=== PATIENT | female | born 1995 | race Caucasian/White ===

== ENCOUNTER 2023-03-04 07:11 | Outpatient (CLI) | payer OTHER, SELFPAY ==
--- NOTE | 2023-03-04 07:15 | CRLHL7_ITS ---
For Patients: As a result of the Century Cures Act, medical imaging exams and procedure reports are released immediately into your electronic medical record. You may view this report before your referring provider. If you have questions, please contact your health care provider. INDICATION: First trimester scan, establish dates. COMPARISON: None. TECHNIQUE: Real-time elizondo-scale imaging of the pelvis was performed. FINDINGS: Sonographic imaging demonstrates a single living intrauterine gestation. The embryo demonstrates a regular cardiac rate measuring 174 beats per minute. The embryo`s crown-rump length measurement of 3.5 cm corresponds to a gestational age of 10 weeks 3 days with a sonographic due date of September 27, 2023. There is a normal-appearing yolk sac measuring 4 mm. There appears to be physiologic gut herniation or less likely an omphalocele. However ultrasound follow up is recommended within 4-6 weeks to assess for resolution of this potential physiologic finding. The placenta has not yet developed. The gestational sac has a normal appearance. Minimal subchorionic hemorrhage inferior to the gestational sac measuring 8 x 14 x 14 mm. And there is no evidence of a perigestational hemorrhage. The amount of fluid within the sac appears appropriate for gestational age. The cervix is closed. The myometrium appears normal. The ovaries are of normal size. The right ovary measures 4.6 x 2.4 x 2.0 cm. The left ovary measures 3.6 x 2.2 x 2.1 cm. There are no suspicious fluid collections noted in the cul-de-sac. IMPRESSION: Gestational age calculated at 10 weeks 3 days with a sonographic due date of September 27, 2023. Incidental note is made of presumed physiologic foregut herniation versus an omphalocele. A short interval follow-up ultrasound is recommended within 4-6 weeks to assess for resolution or persistence of this finding. Dictated by William Ellis MD @ 03/04/2023 9:47:39 AM (Electronically Signed)
== END 2023-03-04 07:12 | disposition home or self-care (01) ==
PROVIDERS: Visit Provider Physician Assistant
DX: Z34.91 Encounter for supervision of normal pregnancy, unspecified, first trimester (principal); Z3A.09 9 weeks gestation of pregnancy
CPT/HCPCS: 76817; 86703; 86803; 86850; 86900; 86901; 87086; 87340

== ENCOUNTER 2023-03-04 10:36 | Outpatient (CLI) | payer OTHER, SELFPAY | END 2023-03-04 10:37 | disposition home or self-care (01) | PROVIDERS: Visit Provider Physician Assistant | DX: Z34.91 Encounter for supervision of normal pregnancy, unspecified, first trimester (principal); Z3A.09 9 weeks gestation of pregnancy | CPT/HCPCS: 86592; 86703; 86762; 86787; 86803; 86850; 86900; 86901; 87086; 87340 ==

== ENCOUNTER 2023-04-01 08:06 | Outpatient (CLI) | payer OTHER, SELFPAY ==
--- NOTE | 2023-04-01 08:15 | CRLHL7_ITS ---
For Patients: As a result of the Cures Act, medical imaging exams and procedure reports are released immediately into your electronic medical record. You may view this report before your referring provider. If you have questions, please contact your health care provider. INDICATION: f/u ?gut herniation vs. omphalocele COMPARISON: 03/04/2023 TECHNIQUE: Real-time elizondo-scale imaging of the pelvis was performed. FINDINGS: Sonographic imaging demonstrates a single living intrauterine gestation. The embryo demonstrates a regular cardiac rate measuring 161 beats per minute. The embryo`s crown-rump length measurement of 8.8 cm corresponds to a gestational age of 14 weeks 5 days with a sonographic due date of 09/25/2023. The abdominal wall appears normal on the current exam. There are no gross abnormalities noted within the embryo at this early state of development. The gestational sac has a normal appearance. There is no evidence of a perigestational hemorrhage. The amount of fluid within the sac appears appropriate for gestational age. The cervix is closed. The myometrium appears normal. The ovaries are not visualized. There are no suspicious fluid collections noted in the cul-de-sac. IMPRESSION: The previously noted abdominal wall finding is no longer present. Dictated by Eliezer Carey MD @ 04/01/2023 10:27:05 AM (Electronically Signed)
== END 2023-04-01 08:07 | disposition home or self-care (01) ==
LOC: US 08:06
PROVIDERS: Visit Provider Physician Assistant
DX: O35.9XX0 Maternal care for (suspected) fetal abnormality and damage, unspecified, not applicable or unspecified (principal)
CPT/HCPCS: 76816

== ENCOUNTER 2023-05-13 12:28 | Outpatient (CLI) | payer OTHER, SELFPAY ==
--- NOTE | 2023-05-13 12:15 | CRLHL7_ITS ---
For Patients: As a result of the Century Cures Act, medical imaging exams and procedure reports are released immediately into your electronic medical record. You may view this report before your referring provider. If you have questions, please contact your health care provider. INDICATION: Evaluate anatomy. COMPARISON: 03/04/2023, 04/01/2023 TECHNIQUE: Real time elizondo scale imaging of the fetus was performed as well as color Doppler analysis of the umbilical vessels. FINDINGS: Sonographic imaging demonstrates a single living intrauterine gestation. Fetus demonstrates a regular cardiac rate of 156 beats per minute. Fetus has a vertex position. The placenta lies anteriorly. The edge of the placenta is 8.8 cm from the internal cervical os. Amniotic fluid volume appears normal. Single deepest vertical pocket: 5.4 cm. The cervix is closed and measures 4.2 cm in length. The composite ultrasound gestational age is calculated at 20 weeks 6 days with an estimated sonographic due date of 09/24/2023. The estimated weight is 411 grams which lies at the greater than 97th %. The following biometric measurements were obtained: Biparietal diameter: 4.8 cm/20 weeks 4 days 76th% Head circumference: 17.8 cm/20 weeks 2 days 63rd% Abdominal circumference: 16.7 cm/21 weeks 5 days 93rd% Femur length: 3.5 cm/21 weeks 0 days 82nd% The HC/AC ratio measures: 1.07 range (1.06-1.25) On anatomic survey, there is a normal appearance of the cerebral ventricles, cavum septi pellucidi, cisterna magna and cerebellum. The nose, lips, and facial profile appear normal. The cervical, thoracic and lumbar spine are well visualized and appear normal. There is a normal four-chamber heart view and the left and right ventricular outflow tracts appear normal. The diaphragm and stomach appear normal. The kidneys and bladder also appear normal. There is a normal three-vessel cord and cord insertion site. The four extremities appear normal. IMPRESSION: Sonographic gestational age 20 weeks 6 days and sonographic due date 09/24/2023. Sonographic age 1 week ahead of the clinical age. No intrinsic abnormalities noted on anatomic survey. Dictated by Eliezer Carey MD @ 05/13/2023 1:31:48 PM (Electronically Signed)
== END 2023-05-13 12:29 | disposition home or self-care (01) ==
LOC: US 12:29
PROVIDERS: Visit Provider Physician Assistant
DX: Z34.92 Encounter for supervision of normal pregnancy, unspecified, second trimester (principal); Z3A.20 20 weeks gestation of pregnancy
CPT/HCPCS: 76805

== ENCOUNTER 2023-07-15 08:31 | Outpatient (CLI) | payer OTHER, SELFPAY | END 2023-07-15 08:32 | disposition home or self-care (01) | LOC: NFLDREF 07-19 03:16 | PROVIDERS: Visit Provider Obstetrics & Gynecology | DX: Z34.91 Encounter for supervision of normal pregnancy, unspecified, first trimester (principal) | CPT/HCPCS: 86592 ==

== ENCOUNTER 2023-09-06 14:55 | Outpatient (CLI) | payer OTHER, SELFPAY | END 2023-09-06 14:56 | disposition home or self-care (01) | LOC: NFLDREF 09-09 11:48 | PROVIDERS: Visit Provider Obstetrics & Gynecology | DX: Z34.93 Encounter for supervision of normal pregnancy, unspecified, third trimester (principal); Z36.85 Encounter for antenatal screening for Streptococcus B; Z3A.36 36 weeks gestation of pregnancy | CPT/HCPCS: 87081; 87653 ==

== ENCOUNTER 2023-09-27 06:06 | Inpatient (IN) | payer OTHER, SELFPAY ==
[2023-09-27] VITALS (14 sets, daily range): BP systolic 110–149; BP diastolic 65–87; PULSE 71–108; RESP 16–18; TEMP 36.7–37.1; O2SAT 97
--- NOTE | 2023-09-27 07:23 | P.LDBA_ITS ---
Subjective History of Present Illness Time Seen by Provider: 06:00 Narrative: Patient is being admitted to Labor and Delivery for spontaneous active labor. She is a 28 year old at weeks gestation. Her full history and physical was dictated by Dr. Zepeda on 09/13/23. Please see this for details. Specific Issues/Plans Spouse: Ciro, daughter: Lexis. [place] gender 1. Physiologic gut herniation verses omphalocele on dating and viability ultrasound at 9 6/7 Follow-up ultrasound in 4 weeks: Resolved 2. Pap 3. History of thrombocytopenia. Hematology consult 09/2020 in first : Either low normal platelets or chronic ITP versus gestational thrombocytopenia. 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 Mentating appropriately Pelvic exam: 10/100/+3
[2023-09-27] MEDS: ACETAMINOPHEN 500 MG TABLET 1000 MG PO ×3 (07:26→20:33)
--- NOTE | 2023-09-27 07:31 | W.PM.VAGDEL1 ---
Procedure Delivery date: 09/27/23 Procedure Done: Global Intrapartal Events: None Delivery monitor: external FHT Route of delivery: Laceration description: Perineal - 1st Degree Delivery repair: Vicryl Estimated blood loss (mL): 50 Anesthesia type: Local (For laceration repair ) Disposition: floor Narrative: The patient is a 28 year-old G 2 P 1001 admitted on 09/27/23 at 39 and 3/7 weeks gestation for spontaneous onset of labor. Cervical exam on admission was 10 cm/100 % effaced/+3 station with membranes intact in vertex presentation. Contractions were every 2 minutes. heart rate demonstrated baseline 130 bpm with moderate variability, + accelerations, negative decelerations; a category I tracing. GBS negative. SROM occurred at 0620 on 09/27/23 with clear fluid. Labor Analgesia: None Pitocin: No Labor onset: 09/27/2023 at 0200 Complete: 09/27/2023 at 0600 Pushin09/27/2023 at 0600 heart tones during second stage were cat I At 0635 a viable male infant delivered in vertex OA presentation over perineum via spontaneous vaginal delivery. Infant was placed on maternal abdomen. Cord was clamped and cut after a 30-60 second delay. Nose and mouth were bulb suctioned. Infant weight: pending. 7 at 1 minute and 8 at 5 minutes. Shoulder dystocia: No. Nuchal cord: No. Placenta delivered spontaneously and complete at 0641 with a 3 vessel cord. Complications: None. Mother and infant were stable after delivery. Laceration(s): Long 1st degree perineal, repaired with 2-0 vicryl in a continuos locking manner. 15 cc of 1% lidocaine used for analgesia. Estimated blood loss: 50 mL. Sponge and needles counts are correct. Mother and were stable at the time of this note. Vaishali is planning on . Baby boy: [place] Infant Gender: Male presentation: vertex Placental Delivery Description: Spontaneous Cord Description: 3 Vessels
[2023-09-27] MEDS: OXYTOCIN 10 UNIT/ML INJ IM (07:49)
[2023-09-27] MEDS: LIDOCAINE 1 % PF 30 ML INJECTION (07:49)
[2023-09-27 09:45] LABS: Hematocrit 38.1 % (33.0-51.0); Hemoglobin* 12.6 gm/dL (12.0-16.0); Mean Corpuscular HGB Conc 33 gm/dL (32-36); Mean Corpuscular Hemoglobin 29 pg (26-34); Mean Corpuscular Volume 87 fL (80-100); Platelet Count* 159 K/uL (140-440); Red Blood Count 4.39 m/uL (4.00-5.20); White Blood Count* 16.65 K/uL (4.50-11.00)
[2023-09-27 09:47] LABS: Slide Review Reflex No
[2023-09-27 10:08] LABS: Alanine Aminotransferase* 18 U/L (4-35); Aspartate Amino Transferase* 36 U/L (12-35); Blood Urea Nitrogen* 14 mg/dL (5-24); Creatinine* 0.5 mg/dL (0.5-1.5); Est. Creatinine Clearance* 155.42; Estimated Glomerular Filt Rate 130 ml/min
[2023-09-27] MEDS: IBUPROFEN 600 MG TABLET PO ×2 (12:06→19:09)
[2023-09-28 01:05] VITALS: BP 112/75; PULSE 84; RESP 12; TEMP 36.4; O2SAT 96
[2023-09-28] MEDS: IBUPROFEN 600 MG TABLET PO (01:05)
[2023-09-28] MEDS: ACETAMINOPHEN 500 MG TABLET 1000 MG PO (03:28)
[2023-09-28 03:30] VITALS: BP 102/64; PULSE 84; RESP 12; TEMP 36.7; O2SAT 96
[2023-09-28 07:03] LABS: Hematocrit 32.3 % (33.0-51.0); Hemoglobin* 10.6 gm/dL (12.0-16.0); Mean Corpuscular HGB Conc 33 gm/dL (32-36); Mean Corpuscular Hemoglobin 29 pg (26-34); Mean Corpuscular Volume 87 fL (80-100); Platelet Count* 132 K/uL (140-440)
[2023-09-28 07:07] LABS: Slide Review Reflex No
[2023-09-28 07:18] LABS: Alanine Aminotransferase* 17 U/L (4-35); Aspartate Amino Transferase* 39 U/L (12-35); Blood Urea Nitrogen* 12 mg/dL (5-24); Creatinine* 0.5 mg/dL (0.5-1.5); Est. Creatinine Clearance* 155.42; Estimated Glomerular Filt Rate 130 ml/min
--- NOTE | 2023-09-28 07:41 | P.DS_ITS ---
DS: Providers Provider Date Seen: 09/28/23 Date of admission: 09/27/23 06:06 Primary care physician: Not a Local Provider Admitting Clinician: Maliha Izquierdo CNM Attending Physician on discharge: Veronika Bethea CNM Date of Discharge: 09/28/23 DS: Diagnosis Discharge Diagnosis (1) Lactating mother: Status: Acute (2) care and examination immediately after delivery: Status: Acute Exam Narrative: Exam Narrative: GENERAL APPEARANCE:? normal affect, alert, no distress MOOD:? appropriate CHEST:? clear to auscultation HEART:? regular rate and rhythm ABDOMEN:? soft, non-tender the uterine fundus is At Umbilicus, Midline and is appropriate for the stage of recovery. PERINEUM:? mild edema of the perineum, there is a Perineal Laceration,? 1st degree that is healing well. EXTREMITIES:? normal and trace edema Const: Vital Signs, click to edit/add: Vital Signs - 24 hr 09/27/23 07:43 09/27/23 07:43 09/27/23 07:58 Temperature 98.8 F Pulse Rate 82 82 Pulse Rate [Left P ulse Oximeter] Respiratory Rate Blood Pressure 121/74 121/78 Blood Pressure [Le ft Arm] Pulse Oximetry Oxygen Delivery Me thod 09/27/23 08:13 09/27/23 08:28 09/27/23 08:43 Temperature Pulse Rate 71 75 79 Pulse Rate [Left P ulse Oximeter] Respiratory Rate Blood Pressure 135/80 128/82 126/81 Blood Pressure [Le ft Arm] Pulse Oximetry Oxygen Delivery Me thod 09/27/23 08:43 09/27/23 12:01 09/27/23 16:55 Temperature 98.8 F 98.2 F Pulse Rate Pulse Rate [Left P ulse Oximeter] 75 80 Respiratory Rate 18 18 Blood Pressure Blood Pressure [Le ft Arm] 110/70 118/80 Pulse Oximetry 97 97 Oxygen Delivery Me thod Room Air Room Air 09/27/23 20:20 09/28/23 01:05 09/28/23 03:30 Temperature 98.0 F 97.6 F 98.1 F Pulse Rate Pulse Rate [Left P ulse Oximeter] 80 84 84 Respiratory Rate 16 12 12 Blood Pressure Blood Pressure [Le ft Arm] 111/74 112/75 102/64 Pulse Oximetry 96 96 Oxygen Delivery Me thod Room Air Room Air Documenting provider has reviewed patient's vital signs: yes OB - DS: Summary Hospital Course Hospital Course: Vaishali is a 28 y.o. who was admitted to L & D for spontaneous labor. ?She had an uncomplicated NVD.?The patient feels well. ?The pain is well controlled with current medications. ?She has no new complaints. ?She is breast feeding and reports things are going well.? the patient has done well.? Vitals have been stable.? She has remained afebrile.? Has a good appetite, is tolerating a general diet. ?She is voiding without difficulty.? She is passing gas and has not had a bowel movement.? She is ambulating and denies any dizziness.? Has Small amount of rubra lochia. ?She is planning an IUD for prevention. Her preeclampsia lab work is essentially unchanged from her 07/27/24 results, blood pressures are WNL since delivery. Peripartum Data Infant delivery method: Vaginal Laceration description: Perineal - 1st Degree complications: none [place] Infant Gender: Male Infant Discharge Plan: Home Status at Discharge Functional status at discharge: independent ambulation Overall status at discharge: patient is progressing back to baseline Time Spent with Patient Time attestation: Total time spent providing and/or coordinating discharge services: Time spent: Less than 30 minutes Discharge Plan Discharge Disposition: Home, Self-Care Date of Admission: 09/27/23 06:06 Attending Provider on Discharge: Veronika Bethea Primary Care Provider: Provider,Not a Local Condition: Stable Anticipated Discharge Date/Time: 09/28/23 12:00 Discharge Medications: New acetaminophen 500 mg Tablet 1,000 mg PO Q6H PRN (Reason: pain/fever) Qty: 0 0RF docusate sodium 100 mg Capsule 100 mg PO DAILY Qty: 90 4RF ibuprofen 600 mg Tablet 600 mg PO Q6H PRNQty: 60 0RF Continued DHA 200 mg capsule PO polyethylene glycol 3350 [Miralax] 17 gram powder in packet 17 g PO QDAY magnesium 200 mg tablet 200 mg PO QDAY Fiber Gummies 2 gram tablet,chewable PO Discharge Orders: Discharge Order (Routine); Ordered 09/28/23 Ordered By: Veronika Bethea Patient Education: OB Over the Counter Medication Information, OB Vaginal/Breast Feeding Additional Instructions: Discharge instructions were reviewed with the patient including signs and symptoms of infection and home going medications Nothing vaginally for 6 weeks: no tampons or intercourse Off Work or School for 6 weeks 2-week visit: discuss infant feeding concerns, review control options and screen for anxiety/depression. 6-week visit for an annual exam. consultation services are available to all mothers and babies for the first year after delivery.? To make an appointment, please call [phone]. Activity Level: Activity as Tolerated Discharge Diet: Regular Follow Up Appointments: Provider,Not a Local [Primary Care Provider] - [facility] [Provider Group] Forms: DailyStrength Info Instructions
[2023-09-28] MEDS: DOCUSATE SODIUM 100 MG CAPSULE PO (08:50)
== END 2023-09-28 11:19 | disposition home or self-care (01) | DRG 807 ==
LOC: OB OUT 06:34 → OB 06:34
PROVIDERS: Obstetrics & Gynecology; Admitting Provider Advanced Practice Midwife; Visit Provider Obstetrics & Gynecology
DX: O70.0 First degree perineal laceration during delivery (principal); Z37.0 Single live birth; Z3A.39 39 weeks gestation of pregnancy
CPT/HCPCS: 36415; 82565; 82570; 84156; 84450; 84460; 84520; 85018; 85027; A9270; J2001; J2590

== ENCOUNTER 2025-03-15 09:09 | Outpatient (CLI) | payer OTHER, SELFPAY | END 2025-03-15 09:10 | disposition home or self-care (01) | PROVIDERS: Visit Provider Physician Assistant | DX: Z34.82 Encounter for supervision of other normal pregnancy, second trimester (principal); Z67.40 Type O blood, Rh positive | CPT/HCPCS: 76801; 83020; 83021; 85660; 86592; 86703; 86704; 86706; 86762; 86787; 86803; 86850; 86900; 86901; 87086; 87340 ==

== ENCOUNTER 2025-05-08 08:11 | Outpatient (CLI) | payer OTHER, SELFPAY ==
--- NOTE | 2025-05-08 08:15 | CRLHL7_ITS ---
For Patients: As a result of the Century Cures Act, medical imaging exams and procedure reports are released immediately into your electronic medical record. You may view this report before your referring provider. If you have questions, please contact your health care provider. OB ULTRASOUND GREATER THAN 14 WEEKS, CLINICALHISTORY: screen. TECHNIQUE: Ultrasound OB pelvis transabdominal. Real-time elizondo-scale imaging of the pelvis was performed. FINDINGS: LMP: 12/13/2024. JENNA by LMP: 09/19/2025. GA: 20 weeks 6 days. Position: Vertex. Cervix: Visualized. Technique: TA. Length of closed cervix: 3.6 cm. Placenta/Cord: Placenta location: Posterior. Technique: TA. Umbilical cord: 3 vessel. Placenta Insertion: Central. Amniotic Fluid: 5.1 cm SDP. OBSERVED STRUCTURES: Cerebellum 2.3 cm, 22 weeks 4 days Cisterna Magna: 6.3 mm Nuchal Fold: 5.0 mm Lateral Ventricle: 4.3 mm CSP Choroid Plexus Midline Falx Spine Abdomen: Stomach Abd Cord Insert Urinary Bladder Kidneys Diaphragm Face: Nose/Lips Orbital View Profile Limbs: Upper Extremities Lower Extremities Hands Feet Vascular: 4 Ch Heart LVOT RVOT 3VV 3VTV BIOMETRY: BPD: 4.8 cm, 20 weeks 4 days. 40% HC: 18.6 cm, 20 weeks 6 days. 44% AC: 16.5 cm, 21 weeks 4 days. 67% FL: 3.8 cm, 22 weeks 2 days. 86% FL/AC: 23.24% HC/AC Ratio: 1.12. Heart Rate: 149 bpm. Age by this US: 21 weeks 4 days. JENNA by this US: 09/14/2025. EFW: 448 grams, 1 lb 0 oz. Percentile by JENNA: 88% IMPRESSION: 1. Concordance of clinical and sonographic dating. 2. Normal anatomic survey. Eliezer Carey M.D. Diagnostic Radiologist [email or web address] Transcribed: 3:48 pm DW/Dictated by: Eliezer Carey MD @ 05/08/2025 3:26:00 PM (Electronically Signed)
== END 2025-05-08 08:12 | disposition home or self-care (01) ==
LOC: US 08:12
PROVIDERS: Visit Provider Physician Assistant
DX: Z34.92 Encounter for supervision of normal pregnancy, unspecified, second trimester (principal); Z3A.20 20 weeks gestation of pregnancy
CPT/HCPCS: 76805

== ENCOUNTER 2025-07-02 10:57 | Outpatient (CLI) | payer OTHER, SELFPAY | END 2025-07-02 10:58 | disposition home or self-care (01) | LOC: NFLDREF 07-05 19:50 | PROVIDERS: Visit Provider Obstetrics & Gynecology | DX: Z34.93 Encounter for supervision of normal pregnancy, unspecified, third trimester (principal) | CPT/HCPCS: 86592 ==